=== PATIENT | male | born 1960 | race Caucasian/White ===

== ENCOUNTER 2018-10-15 02:43 | Emergency (ER) | payer OTHER ==
[~2018-10-15] VITALS: Ht 175.3 cm; Wt 87.0 kg
[2018-10-15] MEDS ORDERED: FAMO20 GT (02:56)
[2018-10-15] MEDS ORDERED: HYDR-2924 GT (02:56)
[2018-10-15] MEDS ORDERED: AMLO-512 PO (02:56)
[2018-10-15] MEDS ORDERED: THIA100T67 GT (02:56)
[2018-10-15] MEDS ORDERED: LEVE250T55 PO (02:56)
[2018-10-15] MEDS ORDERED: METO50 GT (02:56)
[2018-10-15] MEDS ORDERED: ACET-2247 GT (02:56)
[2018-10-15] MEDS ORDERED: CLON-570 GT (02:56)
[2018-10-15] MEDS ORDERED: MOM30 PO (02:56)
[2018-10-15] MEDS ORDERED: IPRA3AMP24 NEB (02:56)
[2018-10-15] MEDS ORDERED: ACET-66 PO (02:56)
[2018-10-15] MEDS ORDERED: ONDA4 PO (02:56)
[2018-10-15] MEDS ORDERED: BISA10S PR (02:56)
[2018-10-15] MEDS ORDERED: [UNRECOGNIZED DRUG - CODE] SQ (02:56)
[2018-10-15] MEDS ORDERED: DIATRIZOATE MEGLU/SOD 660/100 MG/ML 120 ML BOTTLE ONE ×3 (04:09→09:29)
[2018-10-15 04:56] LABS: BASOPHILS % (AUTO) 0.6 % (0.0-2.0); EOSINOPHILS % (AUTO) 1.2 % (1.0-6.0); HEMATOCRIT 37.9 % (41-53); HEMOGLOBIN 12.6 g/dL (13.5-17.5); LYMPHOCYTES # (AUTO) 1.2 K/uL (1.0-4.8); LYMPHOCYTES % (AUTO) 13.1 % (22.0-44.0); MEAN CORPUSCULAR HEMOGLOBIN 29.5 pg (26.0-34.0); MEAN CORPUSCULAR HGB CONC 33.3 G/dL (31.0-37.0); MEAN CORPUSCULAR VOLUME 89 fL (80-100); MONOCYTES # (AUTO) 0.9 K/uL (0.1-1.0); MONOCYTES % (AUTO) 9.9 % (2.0-9.0); NEUTROPHILS # (AUTO) 6.7 K/uL (1.8-7.7); NEUTROPHILS % (AUTO) 75.2 % (40.0-70.0); PLATELET COUNT (AUTO) 332 K/uL (150-450); RED BLOOD CELL COUNT(AUTO) 4.29 MIL/uL (4.50-5.90); RED CELL DISTRIBUTION WIDTH 14.4 % (11.5-14.5)
[2018-10-15 05:05] LABS: CALCIUM, TOTAL 9.5 mg/dL (8.8-10.5); CREATININE 1.33 mg/dL (0.60-1.30); POTASSIUM 4.4 mmol/L (3.5-5.1)
[2018-10-15 05:08] LABS: PROTHROMBIN TIME 10.5 SEC (9.4-11.6)
[2018-10-15 05:11] LABS: ALBUMIN 2.9 g/dL (3.4-5.0); BILIRUBIN,TOTAL 0.4 mg/dL (0.1-1.0); TOTAL PROTEIN, SERUM 7.9 g/dL (6.4-8.2)
[2018-10-15] MEDS ORDERED: ONDANSETRON HCL 4 MG/2 ML VIAL IVP PRN ×2 (05:30→06:30)
[2018-10-15] MEDS ORDERED: ACETAMINOPHEN 325 MG TABLET PO PRN ×2 (05:30→06:30)
[2018-10-15] MEDS ORDERED: SODIUM CHLORIDE 0.9% 1,000 ML IV ONE (05:30)
[2018-10-15] MEDS ORDERED: 0.9% SODIUM CHLORIDE 10 ML SYRINGE IVP PRN (05:30)
[2018-10-15] MEDS ORDERED: HYDROCODONE/ACETAMINOPHEN 5-325 MG TABLET PO PRN (06:30)
[2018-10-15] MEDS ORDERED: MORPHINE SULFATE 4 MG/ML SYRINGE IVP PRN (06:30)
[2018-10-15] MEDS ORDERED: MAGNESIUM HYDROXIDE SUSPENSION 30 ML UDCUP PO PRN (06:30)
[2018-10-15] MEDS ORDERED: BISACODYL 10 MG RECTAL RECTAL SUPPOSITORY PR PRN (06:30)
[2018-10-15] MEDS ORDERED: ZOLPIDEM TARTRATE 5 MG TABLET PO PRN (06:30)
[2018-10-15] MEDS ORDERED: HydrALAZINE HCL 20 MG/ML VIAL IVP PRN (06:30)
[2018-10-15] MEDS ORDERED: LevETIRAcetam 750 MG in DEXTROSE 5%-WATER 100 ML IV SCH (07:00)
[2018-10-15] MEDS ORDERED: HEPARIN SODIUM,PORCINE 5,000 UNITS/ML VIAL SQ SCH (08:00)
[2018-10-15] MEDS: DOCUSATE SODIUM 100 MG CAPSULE PO SCH ×2 (09:00→09:20)
[2018-10-15] MEDS: PANTOPRAZOLE SODIUM 40 MG DR TABLET PO SCH ×2 (09:00→09:20)
[2018-10-15] MEDS ORDERED: LIDOCAINE/PF 1% 5 ML VIAL ONE (09:27)
[2018-10-15 12:39] VITALS: BP 139/88
== END 2018-10-15 12:54 | disposition other institution (70) ==
LOC: EMS 02:43
DX: K94.23 Gastrostomy malfunction (principal); I10 Essential (primary) hypertension; Z88.6 Allergy status to analgesic agent; Z86.73 Personal history of transient ischemic attack (TIA), and cerebral infarction without residual deficits
CPT/HCPCS: 36245; 36415; 49450; 74018; 76000; 80053; 85025; 85610; 85730; 96365; 96366; 96372; 99285; C1769; J0712; J1644; J3490; J7060; Q9963